=== PATIENT | male | born 1960 | race Two or more races ===

== ENCOUNTER 2023-01-10 12:28 | Inpatient (IN) ==
[2023-01-10] MEDS ORDERED: Heparin - STEMI 5,000 UNITS/ML 1 ml VIAL IV ONE (12:52)
[2023-01-10 13:11] LABS: ABS Eosinophils 0.1 10^3/uL (0.0-0.5); ABS Lymphocytes 0.9 10^3/uL (1.0-4.8); ABS Monocytes 0.3 10^3/uL (0.0-1.1); ABS Neutrophils 7.5 10^3/uL (1.5-7.6); Eosinophil % 0.6 %; Hematocrit 39.9 % (38-53); Hemoglobin 14.3 g/dL (13.2-16.3); Lymphocyte % 10.2 %; Mean Corpuscular Hemoglobin 33.4 pg (27-33); Mean Corpuscular Hgb Conc 35.9 g/dL (31-36); Mean Corpuscular Volume 93.1 fL (80-97); Mean Platelet Volume 9.2 fL (7.5-11.2); Nucleated Red Blood Cells % 0.1 /100 WBC (0.0-0.4); Platelet Count 167 10^3/uL (150-450); Red Blood Count 4.29 10^6/uL (4.06-5.63); White Blood Count 8.8 10^3/uL (3.6-10.2)
[2023-01-10 13:16] LABS: INR 1.07 (0.83-1.13)
[2023-01-10] MEDS ORDERED: Midazolam 5 mg/5 ml VIAL 1 mg/ml 5 ml VIAL (5 mg) ONE (13:18)
[2023-01-10] MEDS ORDERED: Lidocaine 1% MPF 5 ML VIAL ONE (13:19)
[2023-01-10] MEDS ORDERED: nitroGLYCERIN DRIP 25,000 MCG/250 ML BTL ONE (13:19)
[2023-01-10] MEDS ORDERED: fentaNYL 100 mcg/2 ml 50 MCG/ML VIAL ONE (13:19)
[2023-01-10] MEDS ORDERED: Iohexol 350 (CONTRAST) 200 ML MDV IV ONE (13:19)
[2023-01-10] MEDS ORDERED: Heparin 1,000 UNIT/ML 10 ml (10,000 UNITS) CATHLAB/DIALYSIS ONE (13:19)
[2023-01-10] MEDS ORDERED: Heparin 2 UNITS/ML 1000 mls 1,000 ML IV ONE (13:19)
[2023-01-10] MEDS ORDERED: Heparin 2 UNITS/ML 1000 mls 2,000 ML IV ONE (13:19)
[2023-01-10] MEDS ORDERED: Iohexol 350 (CONTRAST) 100 ML PAK IV ONE ×2 (13:19→14:41)
[2023-01-10] MEDS ORDERED: niCARdipine 0.1MG/ML IVPREMIX 20 MG/200 ML BAG IV ONE (13:19)
[2023-01-10] MEDS ORDERED: Flumazenil 0.5 mg/5 ml 0.1 MG/ML 5 ml VIAL IV PRN (13:30)
[2023-01-10] MEDS ORDERED: fentaNYL 100 mcg/2 ml 50 MCG/ML VIAL IV SLOW PU ONE (13:30)
[2023-01-10] MEDS ORDERED: Midazolam 10 mg/10 ml VIAL 1 mg/ml 10 ml VIAL (10 mg) IV SLOW PU ONE (13:30)
[2023-01-10] MEDS ORDERED: Naloxone 0.4 mg VIAL 0.4 mg/ml 1 ml VIAL IV PUSH PRN (13:30)
[2023-01-10 13:33] LABS: Albumin 3.7 g/dL (3.2-5.2); Potassium 3.7 mmol/L (3.5-5.0); Total Bilirubin 0.6 mg/dL (0.2-1.0)
[2023-01-10 13:34] LABS: Magnesium 1.7 mg/dL (1.9-2.7)
[2023-01-10 13:39] LABS: Albumin/Globulin Ratio 1.5 (1-3); Creatinine, Serum 0.84 mg/dL (0.67-1.17); Globulin 2.5 g/dL (2-4); Total Protein 6.2 g/dL (6.4-8.9); eGFR CKD-EPI 98.6 (>60)
[2023-01-10] MEDS ORDERED: Eptifibatide IV (Load dose) 2 MG/ML 10 ml VIAL ONE ×2 (14:13→14:24)
[2023-01-10] MEDS ORDERED: Ondansetron 4 mg VIAL 2 MG/ML 2 ml VIAL IV PRN (14:49)
[2023-01-10] MEDS ORDERED: LORazepam 2 mg VIAL 1 ml IV PUSH PRN (18:21)
[2023-01-10] MEDS ORDERED: Lorazepam PYXIS KEY PRN (18:21)
[2023-01-10] MEDS ORDERED: Magnesium Sulfate 2 gm BAG 2 GM/50 ML BAG IVPB ONE (18:44)
[2023-01-10] MEDS ORDERED: Prasugrel 10 mg TAB (NF) PO ONE (21:00)
[2023-01-10] MEDS ORDERED: Potassium Chlor 20 meq TAB.ER PO ONE (21:52)
[2023-01-11 01:08] LABS: Calcium 8.4 mg/dL (8.6-10.3); Creatinine, Serum 0.84 mg/dL (0.67-1.17); Magnesium 2.3 mg/dL (1.9-2.7); Potassium 3.8 mmol/L (3.5-5.0); eGFR CKD-EPI 98.6 (>60)
[2023-01-11 05:48] LABS: ABS Basophils 0.1 10^3/uL (0.0-0.1); ABS Eosinophils 0.1 10^3/uL (0.0-0.5); ABS Lymphocytes 1.5 10^3/uL (1.0-4.8); ABS Monocytes 0.4 10^3/uL (0.0-1.1); ABS Neutrophils 5.3 10^3/uL (1.5-7.6); ABS Nucleated RBC 0.01 10^3/ul; Eosinophil % 1.7 %; Hematocrit 39.7 % (38-53); Hemoglobin 13.9 g/dL (13.2-16.3); Lymphocyte % 20.5 %; Mean Corpuscular Hgb Conc 35.1 g/dL (31-36); Mean Platelet Volume 9.4 fL (7.5-11.2); Nucleated Red Blood Cells % 0.1 /100 WBC (0.0-0.4); Platelet Count 176 10^3/uL (150-450); Red Blood Count 4.22 10^6/uL (4.06-5.63); Red Cell Distribution Width 13.1 % (12-17); White Blood Count 7.4 10^3/uL (3.6-10.2)
[2023-01-11 05:49] LABS: Albumin 3.7 g/dL (3.2-5.2); Albumin/Globulin Ratio 1.8 (1-3); Calcium 8.6 mg/dL (8.6-10.3); Creatinine, Serum 0.75 mg/dL (0.67-1.17); Globulin 2.1 g/dL (2-4); HDL Cholesterol 50.8 mg/dL; Potassium 4.2 mmol/L (3.5-5.0); Total Bilirubin 0.5 mg/dL (0.2-1.0); Total Protein 5.8 g/dL (6.4-8.9)
[2023-01-11] MEDS: Prasugrel 10 mg TAB (NF) PO SCH (08:56)
[2023-01-11] MEDS: Isosorbide Mononit ER 30mg TAB PO SCH (10:36)
[2023-01-12 05:02] LABS: Albumin 3.5 g/dL (3.2-5.2); Albumin/Globulin Ratio 1.7 (1-3); Calcium 8.6 mg/dL (8.6-10.3); Creatinine, Serum 0.8 mg/dL (0.67-1.17); Globulin 2.1 g/dL (2-4); Magnesium 1.9 mg/dL (1.9-2.7); Total Bilirubin 0.5 mg/dL (0.2-1.0); Total Protein 5.6 g/dL (6.4-8.9); eGFR CKD-EPI 100.1 (>60)
[2023-01-12] MEDS ORDERED: Metoclopramide 5 MG/ML VIAL (10 mg) IV ONE ×2 (08:20→17:48)
[2023-01-12] MEDS: Prasugrel 10 mg TAB (NF) PO SCH (08:34)
[2023-01-12] MEDS: Isosorbide Mononit ER 30mg TAB PO SCH (08:35)
[2023-01-12 12:01] LABS: Free T3 2.8 pg/mL (2.5-3.9); TSH Ultra Thyroid Stim Horm 1.98 mcIU/mL (0.34-5.60)
[2023-01-12 12:02] LABS: Free T4 0.69 ng/dL (0.61-1.12)
[2023-01-12] MEDS: Acetaminophen IV 1 GM/100ML 1,000 MG/100 ML BAG IV SCH (17:40)
[2023-01-12] MEDS ORDERED: Magnesium Sulfate 2 gm BAG 2 GM/50 ML BAG IVPB ONE (19:08)
[2023-01-12] MEDS ORDERED: Senna TAB 8.6 mg TAB PO SCH (21:00)
[2023-01-12] MEDS ORDERED: Butalb/Acetamin/Caff TAB 325-50-40MG PO PRN (21:00)
[2023-01-13] MEDS: Acetaminophen IV 1 GM/100ML 1,000 MG/100 ML BAG IV SCH ×2 (02:46→08:23)
[2023-01-13 05:26] LABS: ABS Eosinophils 0.3 10^3/uL (0.0-0.5); ABS Lymphocytes 2.1 10^3/uL (1.0-4.8); ABS Monocytes 0.5 10^3/uL (0.0-1.1); Eosinophil % 3.7 %; Hematocrit 38.4 % (38-53); Hemoglobin 13.6 g/dL (13.2-16.3); Lymphocyte % 30.7 %; Mean Corpuscular Hemoglobin 33.2 pg (27-33); Mean Corpuscular Hgb Conc 35.4 g/dL (31-36); Mean Corpuscular Volume 93.6 fL (80-97); Mean Platelet Volume 9.5 fL (7.5-11.2); Platelet Count 149 10^3/uL (150-450); Red Blood Count 4.11 10^6/uL (4.06-5.63)
[2023-01-13 05:42] LABS: Calcium 8.2 mg/dL (8.6-10.3); Creatinine, Serum 0.8 mg/dL (0.67-1.17); Magnesium 2.1 mg/dL (1.9-2.7); eGFR CKD-EPI 100.1 (>60)
[2023-01-13] MEDS: Prasugrel 10 mg TAB (NF) PO SCH (08:22)
[2023-01-13] MEDS ORDERED: Polyethylene Glycol 3350 17 GM PACKET PO SCH (09:00)
[2023-01-13] MEDS ORDERED: Enoxaparin 40 MG/0.4 ML SYR SUBCUT SCH (13:00)
[2023-01-13 15:49] VITALS: BP 102/66
== END 2023-01-13 15:49 | disposition home or self-care (01) | DRG 246 ==
LOC: ED 12:28 → CHICARD 13:40 → SUATTDRO 15:55 → ICU 15:55
PROVIDERS: ADMIT Internal Medicine Cardiovascular Disease; ATTEND Student in an Organized Health Care Education/Training Program